=== PATIENT | female | born 1990 | race Caucasian/White ===

== ENCOUNTER 2019-06-03 07:48 | Emergency (ER) | payer OTHER ==
[~2019-06-03] VITALS: Ht 162.6 cm; Wt 51.7 kg
[2019-06-03 07:59] VITALS: Ht 162.6 cm; Wt 51.7 kg
[2019-06-03 08:39] VITALS: BP 112/58
== END 2019-06-03 08:39 | disposition home or self-care (01) ==
LOC: ED 07:48
DX: J02.9 Acute pharyngitis, unspecified (principal)